=== PATIENT | female | born 1960 | race Native Hawaiian/Other Pacific Islander ===

== ENCOUNTER 2020-04-01 06:47 | Emergency (ER) | payer OTHER ==
[~2020-04-01] VITALS: Ht 172.7 cm; Wt 108.9 kg
[2020-04-01 06:47] VITALS: BP 119/71; TEMP 98.2
== END 2020-04-01 07:53 | disposition home or self-care (01) ==
LOC: ED 06:51
DX: L02.212 Cutaneous abscess of back [any part, except buttock and flank] (principal); S20.461A Insect bite (nonvenomous) of right back wall of thorax, initial encounter; W57.XXXA Bitten or stung by nonvenomous insect and other nonvenomous arthropods, initial encounter; Y92.89 Other specified places as the place of occurrence of the external cause
CPT/HCPCS: 96372; 99283; J1885